=== PATIENT | female | born 1985 | race Caucasian/White ===

== ENCOUNTER 2018-09-05 11:09 | Emergency (ER) | payer SELFPAY ==
[2018-09-05 12:48] VITALS: BMI 23.4
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
[2018-09-05 14:31] VITALS: RESP 16
[2018-09-05 14:51] VITALS: BP 112/76; PULSE 77; TEMP 98.4; O2SAT 96
--- NOTE | 2018-09-05 15:20 | RAD ---
Date of service: 09/05/2018 PROCEDURE: Left Knee Radiographs. HISTORY: Pain. COMPARISON: None. FINDINGS: BONES: Normal. No fracture. JOINTS: Normal. No osteoarthritis. JOINT EFFUSION: None. OTHER FINDINGS: None. IMPRESSION: Normal radiographs of the left knee.
== END 2018-09-05 14:50 | disposition home or self-care (01) ==
LOC: ED 11:09
DX: S80.02XA Contusion of left knee, initial encounter (principal); S09.90XA Unspecified injury of head, initial encounter; Y04.0XXA Assault by unarmed brawl or fight, initial encounter